=== PATIENT | male | born 1995 | race Two or more races ===

== ENCOUNTER 2020-01-13 14:19 | Outpatient (REF) | payer MEDICAID, SELFPAY | END 2020-01-13 14:20 | disposition home or self-care (01) | LOC: HO.LAB 14:19 | PROVIDERS: Visit Provider Internal Medicine | DX: Z20.828 Contact with and (suspected) exposure to other viral communicable diseases (principal) | CPT/HCPCS: C9803; U0003 ==

== ENCOUNTER 2020-11-07 20:29 | Emergency (ER) | payer MEDICAID, SELFPAY ==
--- NOTE | ~2020-11-07 | US_ITS ---
EXAMINATION: US scrotum doppler, US scrotum CLINICAL INFORMATION: Right testicular pain. Rule out torsion. COMPARISON: None TECHNIQUE: A sonogram of the scrotum was performed assessing kiran-scale appearance and color Doppler flow. Spectral Doppler analysis of the arterial and venous flow were performed in the testes bilaterally. FINDINGS: RIGHT: Right testicle measures 4.8 x 2.4 x 3.2 cm, volume 20 mL. No focal testicular parenchymal lesions are visualized. Spectral Doppler analysis of the arterial and venous flow is normal in the right testis. Right epididymal head is normal in size. No right hydrocele or varicocele is seen. Right epididymal Doppler flow is normal. LEFT: Left testicle measures 4.5 x 2.3 x 2.9 cm, volume 16 mL. No focal testicular parenchymal lesions are visualized. Spectral Doppler analysis of the arterial and venous flow is normal in the left testis. Left epididymal head is normal in size. No left hydrocele or varicocele is seen. Left epididymal Doppler flow is normal. US/US scrotum doppler IMPRESSION: Normal appearance of the testicles bilaterally.
--- NOTE | ~2020-11-07 | US_ITS ---
EXAMINATION: US scrotum doppler, US scrotum CLINICAL INFORMATION: Right testicular pain. Rule out torsion. COMPARISON: None TECHNIQUE: A sonogram of the scrotum was performed assessing kiran-scale appearance and color Doppler flow. Spectral Doppler analysis of the arterial and venous flow were performed in the testes bilaterally. FINDINGS: RIGHT: Right testicle measures 4.8 x 2.4 x 3.2 cm, volume 20 mL. No focal testicular parenchymal lesions are visualized. Spectral Doppler analysis of the arterial and venous flow is normal in the right testis. Right epididymal head is normal in size. No right hydrocele or varicocele is seen. Right epididymal Doppler flow is normal. LEFT: Left testicle measures 4.5 x 2.3 x 2.9 cm, volume 16 mL. No focal testicular parenchymal lesions are visualized. Spectral Doppler analysis of the arterial and venous flow is normal in the left testis. Left epididymal head is normal in size. No left hydrocele or varicocele is seen. Left epididymal Doppler flow is normal. US/US scrotum IMPRESSION: Normal appearance of the testicles bilaterally.
[2020-11-07 20:32] VITALS: BP 126/81; PULSE 79; RESP 16; TEMP 36.6; O2SAT 98; BMI 39.5
--- NOTE | 2020-11-07 21:32 | ED.GENADULT ---
HPI - General Adult General Chief complaint: General Medical Stated complaint: testicle pain Time Seen by Provider: 11/07/20 21:31 Source: patient Mode of arrival: ambulatory Limitations: no limitations History of Present Illness HPI narrative: 25 years old male came in for evaluation of right testicular pain. Pain started about a week ago, pain is moderate size at 10 described as a dull aching to the right testicle, no radiation, pain is worsened when he elevates the right leg, no trauma. No other associated symptoms no dysuria, no frequency, no penile discharge, never had similar pain in the past. Patient is sexually active with 1 partner who is known to be healthy with no concerns of STDs. Related Data Allergies Allergy/AdvReac Type Severity Reaction Status Date / Time No Known Allergies Allergy Verified 11/07/20 21:33 Review of Systems Review of Systems: All other systems are reviewed and are negative Constitutional: Reports as per HPI and Reports no additional constitutional complaints Eyes: Reports as per HPI and Reports no additional eye complaints Reports system reviewed and no additional complaints, except as documented Cardiovascular: Reports as per HPI and Reports no additional cardiovascular complaints Respiratory: Reports as per HPI and Reports no additional respiratory complaints Gastrointestinal: Reports as per HPI and Reports no additional gastrointestinal complaints Genitourinary: Reports no additional female genitourinary complaints Musculoskeletal: Reports no additional musculoskeletal complaints Skin/Breast: Reports system reviewed and no additional complaints, except as docu Psychiatric: Reports no additional psychiatric complaints Endocrine: Reports no additional endocrine complaints Hematologic/Lymphatic: Reports no additional hematologic/lymphatic complaints Allergic/Immunologic: Reports no additional allergic/immunologic complaints Reports system reviewed and no additional complaints, except as documented and Reports Abnormal speech present [facility] Social History Social History Advance Directives: No Advance Directives Information Provided: No Physical Exam Vital Signs: Vital Signs: Last Vital Signs Temp 97.8 F 11/07/20 20:32 Pulse 79 11/07/20 20:32 Resp 16 11/07/20 20:32 BP 126/81 11/07/20 20:32 Pulse Ox 98 11/07/20 20:32 Body Mass Index 39.5 Vital signs have been reviewed as appeared to be correct. Blood pressure normal. Heart rate normal. Respiration rate normal. Temperature normal. Oxygen saturation normal. Appearance: Alert. Oriented X3. No acute distress. Head: Normal external exam. Normocephalic. Atraumatic. No William signs noted. No raccoon eyes noted Eyes: PERRLA. EOMI. Conjunctiva and sclera normal. Eyelids normal. ENT: TM's Normal. Pharynx normal. Uvula midline. Moist mucous membranes. No trismus noted. No drooling noted. No muffled voice noted. Neck: Normal inspection. Neck supple. FROM. No adenopathy. Thyroid Normal. No meningeal signs. No neck mass noted. CVS: Normal heart rate and rhythm. Heart sound normal. No murmurs noted. Pulses normal throughout. Respiratory: No respiratory distress. Painless inspiration. Breath sounds normal. No wheezes/rales/rhonchi noted. Chest nontender. No accessory muscle usage noted or decreased air movement noted. Abdomen: Soft and nontender. Bowel sounds normal in all 4 quadrants. No distention noted. No organomegaly noted. No visible injury noted. Back: No CVA tenderness. Full range of motion noted. Skin: Skin warm and dry. Normal skin color. Normal skin turgor. No rashes/lesions/lacerations noted. Extremities: No lower extremity edema. Extremities exhibit normal range of motion. Extremities nontender. exam: Uncircumcised, normal day until healed inspection, intact cremasteric reflex both sides, mild right testicular tenderness is no swelling or deformity. No hernia or masses appreciated. Neuro: Oriented X 3. Cranial nerve exam: II-XII are grossly intact No motor deficit. No sensory deficit. Reflexes normal. Course Course Course Narrative: Assessment and plan. 25-year-old male who came in with testicular pain, patient has unremarkable physical exam, unremarkable testicular ultrasound and UA. Will reassure the patient, NSAIDs p.r.n.. Medical Decision Making Lab Data Lab results reviewed: Yes I reviewed the patient's lab results. Labs: Lab Results 11/07/20 Range/Units 21:47 Urine Color YELLOW Urine Appearance CLEAR Urine pH 6.0 (5.0-8.0) Ur Specific [place] 1.025 (1.005-1.025) Urine Protein NEG (NEG-TRACE) MG/DL Urine Glucose (UA) NEG (NEG) MG/DL Urine Ketones NEG (NEG) MG/DL Urine Blood NEG (NEG) Urine Nitrite NEG (NEG) Ur Leukocyte Esterase NEG (NEG) Imaging Data Testicular Doppler/ultrasound: Radiologist's impression: Unremarkable examination. Discharge Plan Discharge Clinical Impression: Pain in right testicle Patient Disposition: Home, Self-Care Instructions: Scrotal Pain (ED) Referrals: [facility] [Primary Care Provider] - 2 days
[2020-11-07 21:59] LABS: Glucose Urine UA NEG (NEG); Leukocyte Esterase Urine NEG (NEG); Nitrite Urine NEG (NEG); Specific Gravity - Urine 1.025 (1.005-1.025); Urine Blood NEG (NEG); Urine Ketones NEG (NEG); Urine Protein NEG (NEG-TRACE)
[2020-11-07 22:00] LABS: Appearance Urine CLEAR; Color Urine YELLOW
== END 2020-11-07 23:08 | disposition home or self-care (01) ==
PROVIDERS: Emergency Provider Emergency Medicine
DX: N50.811 Right testicular pain (principal)
CPT/HCPCS: 76870; 81003; 93975; 99284

== ENCOUNTER 2021-01-30 20:39 | Emergency (ER) | payer MEDICAID, SELFPAY ==
[2021-01-30 20:51] VITALS: BP 169/91; PULSE 89; RESP 18; TEMP 36.1; O2SAT 98; BMI 41.0
--- NOTE | 2021-01-30 21:01 | ED_ITS ---
HPI - General Adult General Chief complaint: General Medical Stated complaint: spot on forehead Time Seen by Provider: 01/30/21 20:57 Source: patient Mode of arrival: ambulatory Limitations: no limitations History of Present Illness HPI narrative: 25-year-old male no known medical history presents to the emergency department with concerns of discoloration to his right forehead status post popping a pimple about a month ago. He tells me that he noticed that the scar is in going way, and he is wondering if there is anything we can do for him. He denies trauma to the area. He denies fevers, chills, nausea, vomiting, abdominal pain, discharge from the area, warmth to the area or any other skin changes. He has no other concerns at this time. He tells me he does not use any epju-tqs-[id number] products because he has sensitive skin. Onset (ago): month(s) (1) Location: head Radiation: non-radiation Relieving factors: none Exacerbating factors: none Associated symptoms: denies other symptoms Treatments prior to arrival: none Related Data Allergies Allergy/AdvReac Type Severity Reaction Status Date / Time No Known Allergies Allergy Verified 11/07/20 21:33 Review of Systems Review of Systems: Constitutional : No Weight loss, No Fever, No Chills, No Fatigue, No Malaise ENT/Mouth : No sore throat, No Rhinorrhea Eyes: No Eye Pain, No Swelling, No Redness Cardiovascular : No Chest Pain, No SOB, No Dyspnea on Exertion, No Orthopnea, No Edema, No Palpitations Respiratory : No Cough, No Sputum, No Wheezing Gastrointestinal : No Nausea, No Vomiting, No Diarrhea, No Constipation, No a bdominal Pain, No Hematochezia, No Melena Genitourinary : No Dysuria, No Urinary Frequency, No Hematuria, Musculoskeletal : No joint pain, No Myalgias, No Joint Swelling Skin : No Skin Lesions, No rash, + scar Neuro : No Weakness, No Numbness, No Dizziness, No Headache All other systems reviewed and are negative PMFSH Past Medical History Attestation statement: The following information was validated with the patient. Source: old records reviewed and nursing notes reviewed Social History Social History Advance Directives: No Advance Directives Information Provided: No Physical Exam Vital Signs: Vital Signs: Last Vital Signs Temp 97 F 01/30/21 20:51 Pulse 89 01/30/21 20:51 Resp 18 01/30/21 20:51 BP 169/91 H 01/30/21 20:51 Pulse Ox 98 01/30/21 20:51 Body Mass Index 41.0 VSS Appearance: Alert.? Oriented X3.? No acute distress.? Head: Normocephalic, atraumatic, no step-offs or deformities Eyes: Pupils equal, round and reactive to light.? CVS: Normal heart rate and rhythm.? Pulses normal.? Respiratory: No respiratory distress.? Breath sounds normal.? Abdomen: Soft and nontender.? Skin: Skin warm and dry.? Normal skin color.? Normal skin turgor.?+ small scar noted to the right aspect of the forehead, free of drainage, not painful numb, not warm to the touch (picture attached) Extremities: No lower extremity edema.? No calf ttp. 5/5 strength to bilateral upper and lower extremities Neuro: Oriented X 3.? No motor deficit.? No sensory deficit. Medical Decision Making MDM Narrative Medical decision making narrative: 2100 25-year-old male no known medical history presents to the emergency department for evaluation of a scar to his right forehead that has been there for 1 month. He tells me this was a pimple, he popped the pimple and since then he has noted discoloration over the area. He is wondering if there is anything we can do for him. He tells me does not apply products to his face because he has sensitivity. He reports no fevers or chills, no pain at the site, no discharge. Upon physical examination there is a small hyperpigmented scar to the right aspect of his forehead. There is a picture in the chart. The rest of physical examination is benign. I have advised patient to apply wccu-hky-vqkwwmx products to the area for acne. He can also follow up with Dermatology. He is safe for discharge home with PCP and Dermatology follow-up. Critical Care Time Critical Care Time Critical Care Time: No Discharge Plan Discharge Clinical Impression: Acne scar Patient Disposition: Home, Self-Care Additional Instructions: Follow-up with your primary care provider this week. See a home office claim specialist if needed Try over the counter acne medicine for sensitive skin. Return to the emergency department with new or worsening symptoms. In case of emergency call 911 Referrals: Physician,Nestor J [Primary Care Provider] - 2 days
== END 2021-01-30 21:18 | disposition home or self-care (01) ==
PROVIDERS: Emergency Provider Emergency Medicine
DX: L70.9 Acne, unspecified (principal)
CPT/HCPCS: 99282; 99283

== ENCOUNTER 2021-09-16 14:53 | Emergency (ER) | payer MEDICAID, SELFPAY ==
[2021-09-16 17:27] VITALS: BP 131/80; PULSE 69; RESP 16; TEMP 36.9; O2SAT 99; BMI 40.3
--- NOTE | 2021-09-16 17:30 | ECG_ITS ---
Test Reason : chest tight Blood Pressure : / mmHG Vent. Rate : 067 BPM Atrial Rate : 067 BPM P-R Int : 158 ms QRS Dur : 102 ms QT Int : 374 ms P-R-T Axes : 032 002 021 degrees QTc Int : 395 ms Normal sinus rhythm Minimal voltage criteria for LVH, may be normal variant ( R in aVL ) Borderline ECG No previous ECGs available Referred By: Generic ED Physician Electronically Signed By:MYRIAM MYLES MD
== END 2021-09-16 20:27 | disposition left against medical advice (07) ==
PROVIDERS: Emergency Provider Emergency Medicine
DX: R07.89 Other chest pain (principal); I10 Essential (primary) hypertension; Z79.899 Other long term (current) drug therapy
CPT/HCPCS: 93005; 99283

== ENCOUNTER 2021-09-17 18:17 | Emergency (ER) | payer MEDICAID, SELFPAY ==
[2021-09-17 20:23] VITALS: BP 137/74; PULSE 76; RESP 18; TEMP 36.8; O2SAT 99; BMI 40.3
[2021-09-17 22:08] LABS: MANUAL DIFF FLAG NO
[2021-09-17 22:22] LABS: Basophils Percent Auto 0.2 % (0-2); Eosinophils Absolute Auto 0.1 X10*3/uL (0.0-0.4); Eosinophils Percent Auto 1.3 % (0-4); Hematocrit 45.6 % (42.0-52.0); Imm Gran Abs Auto 0.04 X10*3/uL (0.00-0.03); Imm Gran Pct Auto 0.4 % (0.0-0.4); Lymphocytes Absolute Auto 2.5 X10*3/uL (1.2-4.9); Lymphocytes Percent Auto 24.2 % (20-40); Mean Corpuscular HGB Conc 32.9 g/dl (31.0-36.0); Mean Corpuscular Hemoglobin 28.6 pg (27.0-33.0); Mean Corpuscular Volume 86.9 fL (80.0-98.0); Mean Platelet Volume 11.1 fL (9.4-12.4); Monocytes Absolute Auto 0.9 X10*3/uL (0.1-1.2); Monocytes Percent Auto 8.7 % (2-11); Neutrophils Absolute Auto 6.8 x10*3/uL (2.0-8.3); Neutrophils Percent Auto 65.2 % (45-73); Platelet Count 252 X10*3/uL (160-400); Red Blood Count 5.25 X10*6/uL (4.60-5.80); Red Cell Distribution Width 13.2 % (11.0-16.0); White Blood Count 10.4 X10*3/uL (4.8-10.8)
[2021-09-17 22:32] LABS: Troponin-I High Sensitivity < 3.5 ng/L (<3.5-35.0)
[2021-09-17 22:37] LABS: Alanine Aminotransferase 21 U/L (0-40); Albumin Level 4.3 g/dL (3.5-5.0); Alkaline Phosphatase 115 U/L (39-117); Anion Gap 10 (12-20); Aspartate Amino Transferase 18 U/L (5-37); Blood Urea Nitrogen 11 mg/dL (9-16); Calcium 9.4 mg/dL (8.4-10.2); Carbon Dioxide 29 mmol/L (22-29); Chloride 107 mmol/L (96-108); Creatinine Clr Calc Pharmacy 156.4; Estimated Glomerular Filt Rate > 60; Glucose Random 88 mg/dL (60-115); Potassium 4.2 mmol/L (3.3-5.1); Sodium 142 mmol/L (135-145); Total Protein 7.3 g/dL (6.5-8.0)
[2021-09-17 22:39] LABS: Amphetamine Screen Urine Not Detected (Not Detect); Barbiturates, Urine Not Detected (Not Detect); Benzodiazepines Screen Urine Not Detected (Not Detect); Cannabinoid Screen Urine POSITIVE (Not Detect); Cocaine Screen Urine Not Detected (Not Detect); Fentanyl, urine Not Detected (Not Detect); Opiate Screen Urine Not Detected (Not Detect); Phencyclidine Screen Urine Not Detected (Not Detect)
== END 2021-09-18 00:49 | disposition left against medical advice (07) ==
PROVIDERS: Emergency Provider Emergency Medicine
DX: F41.9 Anxiety disorder, unspecified (principal); I10 Essential (primary) hypertension; F12.90 Cannabis use, unspecified, uncomplicated
CPT/HCPCS: 80053; 80307; 84484; 85025; 99281; 99283

== ENCOUNTER 2021-10-30 15:53 | Emergency (ER) | payer MEDICAID, SELFPAY ==
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
[2021-10-30 17:20] VITALS: BP 161/92; PULSE 71; RESP 18; TEMP 36.4; O2SAT 98; BMI 41.0
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
[2021-10-30 23:33] VITALS: BP 150/74; PULSE 72; RESP 18; O2SAT 96
== END 2021-10-30 23:33 | disposition home or self-care (01) ==
PROVIDERS: Emergency Provider Internal Medicine
DX: S39.012A Strain of muscle, fascia and tendon of lower back, initial encounter (principal); S13.4XXA Sprain of ligaments of cervical spine, initial encounter; M54.2 Cervicalgia; V43.62XA Car passenger injured in collision with other type car in traffic accident, initial encounter; Y93.9 Activity, unspecified; Y92.410 Unspecified street and highway as the place of occurrence of the external cause; Y99.9 Unspecified external cause status; F17.200 Nicotine dependence, unspecified, uncomplicated; Z71.6 Tobacco abuse counseling; Z79.899 Other long term (current) drug therapy
CPT/HCPCS: 72040; 72100; 99283; 99284